=== PATIENT | male | born 1955 | race African-American/Black ===

== ENCOUNTER 2016-10-26 08:57 | Inpatient (IN) | payer OTHER ==
[~2016-10-26] VITALS: Ht 172.7 cm; Wt 73.0 kg
[~2016-10-26 08:57] MED LIST: AMLO-218 PO; CARI350T PO; ESOM20CA PO; HYDR-762 PO; LEVO750T8 PO
[2016-10-26] MEDS ORDERED: SOD CHLORIDE 0.9% 500 ML IV STA (09:13)
[2016-10-26 09:19] VITALS: TEMP 98.8
--- NOTE | 2016-10-26 09:46 | RADRPT ---
PROCEDURE: XR Chest. CLINICAL INDICATION: chest pain TECHNIQUE: Single frontal view of the chest was obtained COMPARISON: None FINDINGS: There is a left perihilar lung mass with left upper lobe atelectasis and elevation of the left diaph ragm. The heart is normal in size. There is a right chest wall port in place. There is no pleural effusion or pneumothorax. RPTAT: AA IMPRESSION: New left perihilar lung mass with left upper lobe atelectasis and elevation of the left diaphragm, c onsistent with the patient's history of lung cancer. A call report was made and the findings discussed with Brian Moore at 10/26/2016 9:44:56 AM. .Emil Heller MD, Date Time Electronically viewed and signed by .Emil Heller MD, on 10/26/2016 09:46 .S/
[2016-10-26 10:20] LABS: ADD SCAN DIFF NO
[2016-10-26 10:34] LABS: BASOPHILS % 0.4 % (0.0-2.0); EOSINOPHILS % 0.7 % (0.0-7.0); HEMATOCRIT 37.7 % (42.0-52.0); HEMOGLOBIN 12.5 g/dl (14.0-18.0); LYMPHOCYTES # 1.6 10^3/ul (0.8-2.9); LYMPHOCYTES % 27.5 % (15.0-51.0); MEAN CORPUSCULAR HEMOGLOBIN 29.6 pg (29.0-33.0); MEAN CORPUSCULAR HGB CONC 33.2 g/dl (32.0-37.0); MEAN CORPUSCULAR VOLUME 89.1 fl (82.0-101.0); MEAN PLATELET VOLUME 8.7 fl (7.4-10.4); MONOCYTE # 0.6 10^3/ul (0.3-0.9); MONOCYTES % 10.7 % (0.0-11.0); NEUTROPHIL # 3.5 10^3/ul (1.6-7.5); NEUTROPHILS % 60.5 % (39.0-77.0); PLATELET COUNT 229 10^3/UL (140-415); RED BLOOD COUNT 4.23 10^6/ul (4.70-6.10); RED CELL DISTRIBUTION WIDTH 14.5 % (11.5-14.5); WHITE BLOOD COUNT 5.7 10^3/ul (4.8-10.8)
[2016-10-26 10:35] LABS: CHLORIDE 102 mmol/L (97-110)
[2016-10-26 10:36] LABS: SODIUM 143 mmol/L (135-144)
[2016-10-26 10:38] LABS: ALBUMIN/GLOBULIN RATIO 1.21; ALKALINE PHOSPHATASE 88 IU/L (42-121); ANION GAP 16 (8-16); ASPARTATE AMINO TRANSFERASE 28 IU/L (15-46); BILIRUBIN,INDIRECT 0.2 mg/dl (0-1.1); BILIRUBIN,TOTAL 0.2 mg/dl (0.2-1.3); BLOOD UREA NITROGEN 11 mg/dl (7-20); CARBON DIOXIDE 29 mmol/L (21-31); CREATININE 0.84 mg/dl (0.61-1.24); GLUCOSE 83 mg/dl (70-220); TOTAL PROTEIN 7.3 g/dl (6.1-8.1)
[2016-10-26 10:39] LABS: ALANINE AMINOTRANSFERASE 23 IU/L (13-69); CALCIUM 9.7 mg/dl (8.4-10.2)
[2016-10-26 11:03] LABS: TROPONIN-I < 0.012 ng/ml (0.00-0.12)
--- NOTE | 2016-10-26 12:00 | ERA ---
ER Documentation Chief Complaint Date/Time DATE: 10/26/16 TIME: 912 Chief Complaint chest pain for 3 wks nausea and vomiting with mild sob. HPI 61-year-old male presents to the emergency department complaining of chest pain nausea vomiting and weakness. Patient states he has a history of lung cancer for which she is having ongoing therapy. Recently, he has been nauseous and vomiting to the point where he feels like he cannot keep any food down. He feels dehydrated weak and with discomfort essentially all over his body but mostly in the chest and the abdomen. His pain does not localize comments nonspecific in nature and currently rated as 7/10. Patient reports no fevers no chills but has continued to have weight loss. ROS All systems reviewed and are negative except as per history of present illness. Medications Home Meds Reported Medications Esomeprazole Mag Trihydrate (Nexium) 20 Mg Capsule.dr, 20 MG PO DAILY, #30 CAP 10/29/15 Amlodipine Besylate* (Norvasc*) 10 Mg Tablet, 10 MG PO DAILY, TAB 10/29/15 Discontinued Reported Medications Hydrocodone Bit-Acetaminophen* (Warren*) 10-325 Mg Tablet, 1 TAB PO Q6 Y for PAIN , TAB 10/29/15 Levofloxacin* (Levofloxacin*) 750 Mg Tablet, 750 MG PO DAILY, TAB 10/29/15 Discontinued Scripts Carisoprodol* (Soma*) 350 Mg Tablet, 350 MG PO TID Y for MUSCLE SPASMS, #15 TAB Prov:NATO PIERCE MD 10/29/15 Allergies Allergies: Coded Allergies: aspirin (Verified Allergy, Unknown, 10/26/16) penicillin (Verified Allergy, Unknown, 10/26/16) PMhx/Soc History of Surgery: Yes Hx Alcohol Use: No Hx Substance Use: No Hx Tobacco Use: No FmHx Noncontributory for chief complaint Physical Exam Vitals Vital Signs Date Time Temp Pulse Resp B/P Pulse Ox O2 Delivery O2 Flow Rate FiO2 10/26/16 11:18 71 13 125/76 100 Room Air 10/26/16 09:19 98.8 84 8 141/87 96 Room Air 10/26/16 09:01 98.1 100 20 155/77 98 Physical Exam GENERAL: Patient is chronically ill-appearing and slightly dehydrated. HEENT: Pupils equal, round, and reactive to light. EOMI. There is no scleral icterus. NECK: C-spine is soft and supple, there is no meningismus. There is no cervical lymphadenopathy. LUNGS: Clear to auscultation bilaterally. There are no rales, wheezes or rhonchi. HEART: Regular rate and rhythm, no murmurs, clicks, rubs or gallops. ABDOMEN: Soft, non-tender, non-distended. There are bowel sounds in all four quadrants. No rebound or guarding. EXTREMITIES: There is no peripheral cyanosis or edema. No focal swelling or erythema. NEURO: The patient moves all four extremities with 5/5 strength. Cranial nerves II - XII are intact. Normal gait. Alert and oriented SKIN: There is no apparent rash or petechiae. Patient has a Port-A-Cath access in the right upper chest wall HEME/LYMPHATIC: There is no evidence of excessive bruising or lymphedema. PSYCHIATRIC: The patient does not appear anxious or depressed. Result Diagram: 10/26/16 1000 10/26/16 1000 Results 24 hrs Laboratory Tests Test 10/26/16 10:00 Alanine Aminotransferase (ALT/SGPT) 23IU/L Albumin 4.0g/dl Albumin/Globulin Ratio 1.21 Alkaline Phosphatase 88IU/L Anion Gap 16 Aspartate Amino Transf (AST/SGOT) 28IU/L Basophils # 0.010^3/ul Basophils % 0.4% Blood Urea Nitrogen 11mg/dl Calcium Level 9.7mg/dl Carbon Dioxide Level 29mmol/L Chloride Level 102mmol/L Creatinine 0.84mg/dl Direct Bilirubin 0.00mg/dl Eosinophils # 0.010^3/ul Eosinophils % 0.7% Globulin 3.30g/dl Glucose Level 83mg/dl Hematocrit 37.7% Hemoglobin 12.5g/dl Indirect Bilirubin 0.2mg/dl Lymphocytes # 1.610^3/ul Lymphocytes % 27.5% Mean Corpuscular Hemoglobin 29.6pg Mean Corpuscular Hemoglobin Concent 33.2g/dl Mean Corpuscular Volume 89.1fl Mean Platelet Volume 8.7fl Monocytes # 0.610^3/ul Monocytes % 10.7% Neutrophils # 3.510^3/ul Neutrophils % 60.5% Nucleated Red Blood Cells # 0.010^3/ul Nucleated Red Blood Cells % 0.0/100WBC Platelet Count 52589^3/UL Potassium Level 4.0mmol/L Red Blood Count 4.2310^6/ul Red Cell Distribution Width 14.5% Sodium Level 143mmol/L Total Bilirubin 0.2mg/dl Total Protein 7.3g/dl Troponin I < 0.012ng/ml White Blood Count 5.710^3/ul Current Medications Medications (Trade) Dose Ordered Sig/Alan Route PRN Reason Start Time Stop Time Status Last Admin Dose Admin Sodium Chloride (NS) 500 ml @ 500 mls/hr Q1H STAT IV 10/26/16 09:13 10/26/16 10:12 DC 10/26/16 10:57 Procedures/MDM Patient was taken to a room, seen and evaluated. Comfort measures were initiated. Diagnostic tests were ordered and reviewed. 3 LEAD RHYTHM STRIP: Normal sinus rhythm without ectopy EK lead EKG reviewed by myself: Normal Sinus Rhythm Normal [place] and intervals No ST elevation, depression, or T wave inversion Impression: Normal EKG RADIOLOGY: reviewed with the radiologist CONSULTATION: Dr. Bryant was notified for admission after I spoke with who recommended admission for initiation of palliative care, IV hydration and further observation REEVALUATION: Patient remained hemodynamically stable in the emergency room MEDICAL DECISION MAKING: This is an unfortunate 61-year-old male with a history of progressing lung cancer who is apparently failing outpatient therapy at this time with his chemotherapy and other treatment options. Patient is having ongoing symptoms that he feels he is unable to take care of himself at home and is been unable to keep any fluid down. Clinically he is dehydrated, but his electrolytes appear to be adequate. Patient has been started on IV hydration and as per my conversations with his oncologist, he will be admitted for further observation and care. KARTHIK SANDERS Oct 26, 2016 12:00
[2016-10-26] MEDS ORDERED: HYDROmorphONE 1 MG/ML SYG IV STA (12:29)
[2016-10-26 13:30] VITALS: BP 132/86; PULSE 73; RESP 16
[2016-10-26 13:39] VITALS: Ht 172.7 cm; Wt 73.0 kg
[2016-10-26] MEDS ORDERED: ACETAMINOPHEN 325 MG TAB PO PRN (14:30)
[2016-10-26] MEDS ORDERED: hydrALAzine 20 MG INJ IV PRN (14:30)
[2016-10-26] MEDS ORDERED: OXYCODONE/ACETAMINOPHEN (10/325) TAB PO PRN (14:30)
[2016-10-26] MEDS ORDERED: morphine 2 MG INJ IV PRN (14:30)
[2016-10-26] MEDS ORDERED: ONDANSETRON 4 MG INJ IV PRN (14:30)
--- NOTE | 2016-10-26 14:58 | CONS ---
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 I am concerned for progressive disease in abdomen as well as brain metastasis given the dizziness. -continue IV Fluids -appreciate pain management consultation to assist with pain management -check CT C/A/P with po and IV contrast -Brain MRI ordered to r/o brain mets -further recommendations will be based on the above tests Problems: Consultation Date/Type/Reason Admit Date/Time Oct 26, 2016 at 12:01 Date of Consultation: Oct 26, 2016 Type of Consultation: Oncology Reason for Consultation metastatic lung ca Referring Provider: KARTHIK SANDERS of Present Illness 61 yo male with 40 pack year smoking history, who is being treated for metastatic adenoca of lung. Patient has progressed through carboplatin and Alimpta and is now receiving opdivo immuno therapy. Patient received his 7th dose 3 weeks ago in our office. He now presents with dizziness x 3 weeks as well as abdominal pain. He is taking subsys Fentanyl spray as well as [place] and MS Contin as an out patient. Denies nausea or blood in stool. His energy level has decreased greatly. Constitutional: diaphoresis, poor po Eyes: no complaints ENT: no complaints Respiratory: cough, shortness of breath Cardiovascular: no complaints Gastrointestinal: pain Genitourinary: no complaints Musculoskeletal: bone/joint pain Neurologic: dizziness Endocrine: no complaints Past Medical History COPD Past Surgical History Past Surgical Hx: no surgical history Family History Significant Family History: no pertinent family hx Social History Alcohol Use: none Smoking Status: Current some day smoker Drug Use: marijuana Exam/Review of Systems Vital Signs Vitals Vital Signs Date Time Temp Pulse Resp B/P Pulse Ox O2 Delivery O2 Flow Rate FiO2 10/26/16 12:40 71 13 130/82 98 Room Air 10/26/16 09:19 98.8 Exam Constitutional: alert, oriented Psych: no complaints Eyes: nl conjunctiva ENMT: nl external ears & nose, nl lips & teeth Neck: supple Respiratory: crackles/rales, diminished breath sounds Cardiovascular: regular rate and rhythm Gastrointestinal: nl liver, spleen, soft, tender Musculoskeletal: nl extremities to inspection, nl gait and stance Extremities: normal pulses Results Result Diagram: 10/26/16 1000 10/26/16 1000 Results 24 hrs Laboratory Tests Test 10/26/16 10:00 Alanine Aminotransferase (ALT/SGPT) 23 Albumin 4.0 Albumin/Globulin Ratio 1.21 Alkaline Phosphatase 88 Anion Gap 16 Aspartate Amino Transf (AST/SGOT) 28 Basophils # 0.0 Basophils % 0.4 Blood Urea Nitrogen 11 Calcium Level 9.7 Carbon Dioxide Level 29 Chloride Level 102 Creatinine 0.84 Direct Bilirubin 0.00 Eosinophils # 0.0 Eosinophils % 0.7 Globulin 3.30 H Glucose Level 83 Hematocrit 37.7 #L Hemoglobin 12.5 #L Indirect Bilirubin 0.2 Lymphocytes # 1.6 Lymphocytes % 27.5 Mean Corpuscular Hemoglobin 29.6 Mean Corpuscular Hemoglobin Concent 33.2 Mean Corpuscular Volume 89.1 Mean Platelet Volume 8.7 Monocytes # 0.6 Monocytes % 10.7 Neutrophils # 3.5 Neutrophils % 60.5 Nucleated Red Blood Cells # 0.0 Nucleated Red Blood Cells % 0.0 Platelet Count 229 Potassium Level 4.0 Red Blood Count 4.23 #L Red Cell Distribution Width 14.5 Sodium Level 143 Total Bilirubin 0.2 Total Protein 7.3 Troponin I < 0.012 White Blood Count 5.7 # Medications Medications Current Medications Dextrose/Sodium Chloride (D5-NS) 1,000 ml @ 60 mls/hr [id number] IV ; Start at 14:30 Pantoprazole (Protonix Iv) 40 mg DAILY@06 IV ; Start 10/27/16 at 06:00 Morphine Sulfate (morphine) 2 mg Q2H PRN IV PAIN; Start 10/26/16 at 14:30 Ondansetron HCl (Zofran Inj) 4 mg Q4H PRN IV NAUSEA AND/OR VOMITING; Start 10/26 at 14:30 Amlodipine Besylate (Norvasc) 10 mg DAILY PO ; Start 10/26/16 at 14:30 Hydralazine HCl (Apresoline) 10 mg Q6H PRN IV ELEVATED SYSTOLIC BP; Start at 14:30 Oxycodone/ Acetaminophen (Endocet (10/ 325)) 1 tab Q4H PRN PO PAIN; Start at 14:30 Acetaminophen (Tylenol Tab) 650 mg Q6H PRN PO PAIN AND OR ELEVATED TEMP; Start 10/26/16 at 14:30 BONI SMALL M.D. Oct 26, 2016 14:58
[2016-10-26] MEDS ORDERED: BARIUM SULF 2% 450 ML BTL (BERRY SMOOTHIE) PO ONE (15:00)
[2016-10-26] MEDS: AMLODIPINE 10 MG TAB PO SCH (15:54)
[2016-10-26] MEDS: DEXTROSE 5%-0.9% NACL 1,000 ML IV SCH (15:55)
[2016-10-26] MEDS ORDERED: POLYETHYLENE GLYCOL 17 GM PACKET NGT PRN (17:30)
[2016-10-26] MEDS ORDERED: SOD CHLORIDE 0.9% 100 ML ONE ×2 (18:47)
[2016-10-26] MEDS ORDERED: IOHEXOL 300MG/ML 150 ML BTL ONE ×2 (18:47)
--- NOTE | 2016-10-26 20:24 | RADRPT ---
PROCEDURE: CT Chest, Abdomen, and Pelvis CLINICAL INDICATION: Evaluate for progressive disease TECHNIQUE: Transaxial images were obtained through the chest, abdomen, and pelvis on a multi-slice scanner following the intravenous administration of iodinated contrast. No oral contrast had previ ously been given. Sagittal and coronal re-formations were subsequently reconstructed. One or more of the following dose reduction techniques were used: - Automated exposure control. - Adjustment of the mA and/or kV according to patient size. - Use of iterative reconstruction technique. Radiation Dose: CTDI = 7.60 mGy; DLP = 600.01 mGy-cm. COMPARISON: To the previous chest done earlier on the same date. The previous chest demonstrate a left hilar mass with a left upper lobe atelectasis. A right-sided Port-A-Cath is evident. FINDINGS: CHEST: Lung verma: There is a left upper lobe atelectasis and consolidation. The remaining lung verma ar e mildly hyperexpanded. No nodule is identified. Pleural spaces: No pneumothorax or pleural fluid accumulation is evident. Lymph nodes: There is a 7.0 x 5.4 x 4.7 cm lobulated heterogeneous mass extending from the right hil um superiorly anterior to the left main pulmonary artery with peripheral atelectasis involving the l eft upper lobe. The mass envelops the left upper lobe bronchus which rapidly tapers and becomes obst ructed. The mass partially envelops the right lower lobe bronchus. No other enlarged nodes are evid ent. Cardiovascular structures: A right-sided Port-A-Cath is evident with a catheter entering the right j ugular vein and the tip located within the superior right atrium. The heart is not enlarged. There is a small pericardial effusion seen posterior to the sternum between the ascending aorta and main pulmonary artery segment. There is mild atherosclerotic vascular calcification. Aorta is intact an d normal in caliber and the brachial cephalic vessels are patent. The central pulmonary arteries ap pear patent. Thyroid: Unremarkable Esophagus: The esophageal wall is thickened concentrically and the lumen is mildly dilated and fill ed with contrast. Osseous structures: The osseous elements appear intact. ABDOMEN: Liver: Normal in size and in attenuation. There is no focal lesion. The hepatic veins and portal vei ns appear patent. Gallbladder: The wall is not thickened. No radiopaque stones are identified. Bile ducts: The intra and extrahepatic bile ducts are normal in caliber. Pancreas: Appears normal with no mass or inflammation evident. Spleen: Normal in size with no focal lesion. Adrenals: Normal with no mass identified. Kidneys, ureters and bladder: A 1.4 cm in maximal diameter cyst is seen at the posterior lateral sup erior pole left kidney. Kidneys are otherwise unremarkable without hydronephrosis. The ureters are unremarkable. The bladder is poorly distended giving the wall of thickened appearance. Reproductive organs: The prostate is mildly prominent. Stomach, bowel, and Mesentery: The stomach is distended with food debris. There is thickening of th e wall of the duodenum and proximal jejunum. The ileum appears unremarkable. Substantial stool is s een within the right colon. Appendix: The vermiform appendix is prominent in caliber measuring 9 mm but no inflammatory changes are evident about the appendix. Peritoneum: No free intraperitoneal fluid or air is identified. Aorta: Normal in caliber with no aneurysmal dilatation. IVC: Unremarkable. Lymph nodes: There is a 1.8 cm in diameter necrotic appearing retrocrural lymph node seen to the rig ht of the proximal abdominal aorta. More inferiorly a 1.2 cm in diameter retroperitoneal node is se en to the right of the aorta at the level of the superior mesenteric artery. Even more inferiorly s everal aorto caval nodes are evident up to 1.1 cm in short diameter. Osseous structures: A 6 mm focus of sclerosis is seen within the right posterior acetabulum that lik anita represents a bone island. IMPRESSION: 1. A 7.0 x 5.4 x 4.7 cm lobulated heterogeneous mass is seen extend to the right hilum superiorly ly ing anterior to the left main pulmonary artery. The mass envelops obstructs the left upper lobe bro nchus and partially envelops the lower lobe bronchus. There is peripheral atelectasis and consolida tion of the left upper lobe. 2. There is a small anterior pericardial effusion located posterior to the sternum and anterior to the junction of the ascending aorta and main pulmonary artery. 3. The esophagus is dilated and the wall is circumferentially thickened throughout. 4. A right-sided Port-A-Cath is evident with the tip in the superior right atrium. 5. There is right retrocrural and retroperitoneal adenopathy with nodes up to 1.[address]. 6. There is bowel wall thickening involving the duodenum and proximal jejunum with the stomach dist ended and filled with food debris. Substantial stool is seen within the right colon. 7. A 1.4 cm in maximal diameter cyst is seen at the superior pole left kidney but there is no evide nce of urinary outflow obstruction or ureterolithiasis. The bladder is suboptimally distended givin g the wall thickened appearance. 8. There is no free intraperitoneal fluid. 9. An AC 5 mm area of sclerosis is seen within the posterior right acetabulum which likely represen ts a bone island. The osseous elements otherwise appear intact. Physician Manuelito Date Time Electronically viewed and signed by Physician Manuelito on 10/26/2016 20:24 RH/
--- NOTE | 2016-10-26 20:31 | QN ---
Documentation Comment [id number] KYLE MEYERS MD Oct 26, 2016 20:31
[2016-10-26 20:35] VITALS: BP 113/63; RESP 18
[2016-10-26] MEDS: morphine (ER) 30 MG TAB PO SCH (20:37)
[2016-10-26] MEDS: METHYLNALTREXONE 12 MG/0.6 ML VIAL SC SCH (21:11)
[2016-10-26] MEDS: HYDROmorphONE 1 MG/ML SYG IV PRN (21:13)
--- NOTE | 2016-10-27 01:17 | HP ---
DATE OF ADMISSION: 10/26/2016 HISTORY OF PRESENT ILLNESS: The patient is a 61-year-old male who has a history of stage IV adenoca rcinoma of the lungs involving his bilateral lungs, has history of chemotherapy in the past. Deann alcantar the patient is on immunotherapy. The patient was sent in by Dr. Tejeda for weakness, tiredness, poor p.o. intake and dizziness and also abdominal pain. The patient is admitted for further managem ent and further workup as well as IV fluid. PAST MEDICAL HISTORY: Positive for hand surgery, history of lung CA. ALLERGY HISTORY: 1. ASPIRIN. 2. PENICILLIN. SOCIAL HISTORY: A smoker. MEDICATION HISTORY: At home, patient is on: 1. Amlodipine. 2. Esomeprazole. REVIEW OF SYSTEMS: HEENT: Dizziness. RESPIRATORY: No shortness of breath. No hemoptysis ____ blood pressure. ABDOMEN: Dyspepsia, on-and-off abdominal pain since he started immunotherapy. EXTREMITIES: No swelling. CENTRAL NERVOUS SYSTEM: Unremarkable. PHYSICAL EXAMINATION: GENERAL: The patient is a thin-looking male, awake, alert. VITAL SIGNS: Stable. HEAD: Atraumatic, normocephalic. EYES: Pupils equal, reactive to light. NECK: Supple. No JVD. LUNGS: Clear. CARDIOVASCULAR: S1 and S2 are normal. ABDOMEN: Soft, nontender. Bowel sounds plus. No palpable mass or hepatosplenomegaly. No guarding , rebound tenderness. EXTREMITIES: The patient has no cyanosis but clubbing, mild, noted. No edema. CENTRAL NERVOUS SYSTEM: The patient is awake, alert, moving both upper and lower extremities. LABORATORY DATA: Hematocrit 37.7, potassium 4. IMAGING: Chest x-ray: New left perihilar lung mass with left upper lobe atelectasis, elevation of the left hemidiaphragm. The patient also had a chest CT, shows patient has 7 x 5.4 x 4.7 cm lobulated heterogeneous mass see n extending to the right hilum. Small anterior pericardial effusions. Esophagus is dilated. The w all is circumferentially thickened. Right retrocrural and retroperitoneal adenopathy. IMPRESSION: 1. Lung carcinoma. 2. Generalized weakness. 3. Clinical dehydration. 4. History of hypertension. 5. Renal cyst. PLAN: Give this patient gentle IV fluid, PPI, pain medication. The patient will have recommendatio n from Dr. Tejeda, and palliative care consultation will be obtained. Orders were done. Dictated By: KYLE MEYERS MD BS/NTS Conf#: [id number] DID#: [id number]
[2016-10-27] MEDS: PANTOPRAZOLE 40 MG INJ IV SCH (06:35)
[2016-10-27] MEDS: DEXTROSE 5%-0.9% NACL 1,000 ML IV SCH ×2 (06:38→23:42)
[2016-10-27 08:11] VITALS: BP 135/68; RESP 18
[2016-10-27] MEDS: AMLODIPINE 10 MG TAB PO SCH (09:04)
[2016-10-27] MEDS: morphine (ER) 30 MG TAB PO SCH ×2 (09:05→20:23)
--- NOTE | 2016-10-27 10:11 | RADRPT ---
PROCEDURE: Orbit x-ray CLINICAL INDICATION: Pre MRI. History of known grinding. TECHNIQUE: AP and lateral views of the orbits. COMPARISON: None. FINDINGS: No radiopaque body overlying the orbits. The paranasal sinuses and nasal cavity are clear. The dagoberto al septum deviates mildly to the left. The mastoid air cells are well-aerated. IMPRESSION: No radiopaque foreign body. RPTAT:AAJJ Physician Mirella Date Time Electronically viewed and signed by Physician Mirella on 10/27/2016 10:11 PATRICIA/
[2016-10-27] MEDS: HYDROmorphONE 1 MG/ML SYG IV PRN ×2 (11:19→22:34)
--- NOTE | 2016-10-27 12:30 | CONS ---
Date/Time of Note Date/Time of Note DATE: 10/27/16 TIME: 12:13 Assessment/Plan Assessment/Plan Chief Complaint/Hosp Course 61 yo male with 40 pack year smoking history, who is being treated for metastatic adenoca of lung. Patient has progressed through carboplatin and Alimpta and is now receiving opdivo immuno therapy. Patient received his 7th dose 3 weeks ago in our office. He now presents with dizziness x 3 weeks as well as abdominal pain. CT C/A/P was done in house which reveals the known lung mass and retroperitoneal nodes. When compared to the last scan in 06/2016, the lung mass is stable in size but the retroperitoneal lymph nodes have slightly increased in size. -need to f/u [facility] MRI as patient has dizziness -given the increase in abdominal LN and his pain in the abdomen, will need to consider changing our regimen. will discuss with the patient. -appreciate pain management recommendations. Pt is on MS contin and Dilaudid approximately 40 min were spent at patient's bedside and in coordination of his care Problems: Consultation Date/Type/Reason Admit Date/Time Oct 26, 2016 at 12:01 Initial Consult Date 10/26/16 Type of Consultation: Oncology Reason for Consultation metastatic adenocarcinoma of lung Referring Provider: KARTHIK SANDERS 24 HR Interval Summary Free Text/Dictation ambulating. states he feels better since receiving the fluids. Has not had MRI brain yet. Exam/Review of Systems Vital Signs Vitals Vital Signs Date Time Temp Pulse Resp B/P Pulse Ox O2 Delivery O2 Flow Rate FiO2 10/27/16 08:11 98.7 68 18 135/68 94 10/26/16 13:30 Room Air Intake and Output 10/26/16 10/26/16 10/27/16 15:00 23:00 07:00 Intake Total 1260 ml 620 ml Output Total 175 ml 220 ml 420 ml Balance -175 ml 1040 ml 200 ml Exam Constitutional: alert, oriented Psych: depression Head: normocephalic Eyes: nl conjunctiva ENMT: other (top gum adentulous) Neck: non-tender, supple Respiratory: clear to auscultation, normal air movement Cardiovascular: regular rate and rhythm Gastrointestinal: soft Musculoskeletal: nl extremities to inspection, nl gait and stance Extremities: normal pulses Results Result Diagram: 10/26/16 1000 10/26/16 1000 Medications Medications Current Medications Dextrose/Sodium Chloride (D5-NS) 1,000 ml @ 60 mls/hr [id number] IV Last administered on 10/27/16 06:38; Admin Dose 60 MLS/HR; Start 10/26/16 at 14:30 Pantoprazole (Protonix Iv) 40 mg DAILY@06 IV Last administered on 10/27/16 06: 35; Admin Dose 40 MG; Start 10/27/16 at 06:00 Ondansetron HCl (Zofran Inj) 4 mg Q4H PRN IV NAUSEA AND/OR VOMITING; Start 10/26 at 14:30 Amlodipine Besylate (Norvasc) 10 mg DAILY PO Last administered on 10/27/16 09: 04; Admin Dose 10 MG; Start 10/26/16 at 14:30 Hydralazine HCl (Apresoline) 10 mg Q6H PRN IV ELEVATED SYSTOLIC BP; Start at 14:30 Acetaminophen (Tylenol Tab) 650 mg Q6H PRN PO PAIN AND OR ELEVATED TEMP; Start 10/26/16 at 14:30 Morphine Sulfate (Ms Contin (Er)) 60 mg BID PO Last administered on 10/27/16 09 :05; Admin Dose 60 MG; Start 10/26/16 at 21:00 Hydromorphone HCl (Dilaudid) 1 mg Q3 PRN IV PAIN Last administered on 10/27/16 11:19; Admin Dose 1 MG; Start 10/26/16 at 17:30 Methylnaltrexone [place] (Relistor) 12 mg Q2D@09 SC Last administered on 21:11; Admin Dose 12 MG; Start 10/26/16 at 20:00 Polyethylene Glycol (Miralax) 17 gm DAILY PRN NGT CONSTIPATION; Start 10/26/16 at 17:30 BONI SMALL M.D. Oct 27, 2016 12:29
--- NOTE | 2016-10-27 13:28 | CONS ---
DATE OF ADMISSION: 10/26/2016 DATE OF CONSULTATION: 10/27/2016 PAIN MANAGEMENT CONSULTATION HISTORY OF PRESENT ILLNESS: This is a very pleasant 61-year-old gentleman who is a patient of Dr. Vishnu Tejeda who has presented to [facility], admitted with abdominal discomfort an d dizziness. States that his pain is generalized and was began approximately 2 months prior to this hospitalization without nausea, vomiting, generalized, primarily located in bilateral upper quadran ts without radiation. Some gnawing type of discomfort that he grades 9/10. Secondary complaint at this time is dizziness without scotoma photophobic formication without true vertigo. 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 As an outpatient he had a recent CT scan which showed progression of underlying lung cancer. Please refer to the formal report by Dr. Dale Reyna, 10/26/2016, which show s once again progression of disease. This has been reviewed also by Dr. Tejeda. As an outpatient he was receiving a combination of fentanyl and Diamond and MS Contin, although he states that he feels t hat the Diamond may cause him some low-grade nausea on occasion. He states that the fentanyl works, b ut he has used that in combination with his other opioid pain control medications. Essentially his pain has increased as noted above. MEDICATIONS: Please refer to reconciliation sheets. ALLERGIES: 1. ASPIRIN. 2. PENICILLIN. MAJOR MEDICAL PROBLEMS IN THE PAST: Entirely per history of present illness. SOCIAL HISTORY: Still a smoker. No substance abuse. Lives in [place]. FAMILY HISTORY: Noncontributory towards this hospitalization. REVIEW OF SYSTEMS: A 12-point review of systems noncontributory and as per history of present illne ss. PHYSICAL EXAMINATION: GENERAL: Shows a well-nourished, well-developed gentleman in no acute distress. VITAL SIGNS: Blood pressure 135/68, pulse of 68 and regular, respirations 18, temperature 98.7 degr ees, 94% saturation on room air. HEENT: He is normocephalic and atraumatic. Anicteric, acyanotic. CHEST: Shows bilateral distant breath sounds throughout both lung verma. He has no rales, rhonchi , wheezing, or rubs. COR: S1, S2, without S3, S4, murmur, gallop, rub. Normal rate, normal rhythm. ABDOMEN: Grossly benign. LABORATORY TESTS: White blood cell count of 5.7, hemoglobin of 12.5, hematocrit of 37.7, MCV of 89. 1, platelet count of 229,000. Chemistry: Serum sodium 143, potassium 4.0, chloride 102, bicarbonat e 29, BUN of 11, creatinine 0.84. Total bilirubin 0.2, AST 28, ALT 23, alkaline phosphatase 88. ASSESSMENT AND PLAN: This gentleman has abdominal discomfort which may be related to underlying mal ignancy and new onset dizziness without true vertigo. I will discontinue Diamond as it may be contrib uting to some low-grade nausea and switch him over to Dilaudid at this time, Dilaudid 1 mg IV q.3 ho urs. Will restart his MS Contin 60 mg b.i.d. and start him off on Relistor also. In addition, will add on MiraLax. We will follow him closely while inhouse. I appreciate this consultation very muc h. Dictated By: EDIE HALL MD, LP/BULMARO Conf#: [id number] DID#: [id number]
--- NOTE | 2016-10-27 14:24 | PN ---
DATE: 10/27/2016 PAIN MANAGEMENT FOLLOWUP NOTE SUBJECTIVE: Mr. Schwarz states that his pain is controlled today. He does not have nausea, vomiting. He still has chest discomfort he states, which is throbbing continuous type of discomfort. He has no hemoptysis. OBJECTIVE: VITAL SIGNS: Blood pressure 135/68, pulse 68 and regular, respirations of 18, temperature 98.7 degr ees, 94% saturations on room air. HEENT: He is normocephalic and atraumatic. Anicteric, acyanotic. CHEST: Shows bilateral distant breath sounds and inspiratory and expiratory dry crackles throughout both lung verma. COR: S1, S2, without S3, S4, murmur, gallop, rub. Normal rate, normal rhythm. ABDOMEN: Grossly benign. ASSESSMENT AND PLAN: There are no new laboratories today. The patient is waiting for results of MR John. History of lung cancer with progression of his disease, rule out brain metastasis. A long discuss ion with him concerning discontinuing smoking and lifestyle changes. Dictated By: EDIE HALL MD, LP/BULMARO Conf#: [id number] DID#: [id number]
--- NOTE | 2016-10-27 16:07 | RADRPT ---
PROCEDURE: MRI Brain without and with contrast. CLINICAL INDICATION: Lung cancer, metastatic evaluation TECHNIQUE: Multiplanar MRI of the brain without and with contrast was performed on a 3.0 T scanner with the following sequences obtained: T1-weighted, T2-weighted/FLAIR, diffusion weighted (with ADC map), GRE, postcontrast T1-weighted. 10 cc Magnevist intravenous contrast administered. COMPARISON: None available FINDINGS: Multifocal enhancing parenchymal lesions are present in the bilateral cerebral and cerebellar hemisp heres, compatible with metastatic disease. The larger lesions are present in the cerebellum, with t he largest in the left cerebellar hemisphere measuring up to 2.9 cm. The next largest lesion is in the cerebellar vermis measuring up to 2.1 cm which partially effaces the fourth ventricle, and there is a 1.4 cm lesion in the right cerebellar hemisphere. There is mild-moderate vasogenic edema asso ciated with the cerebellar lesions bilaterally, greatest around the lesion in the left cerebellar he misphere. The prepontine cistern is also somewhat effaced. The cerebral lesions measure 1 cm or le ss in size with the largest at the right temporal lobe anteriorly with relative mild surrounding melonie ma, and the other all at the right foramen of Monro, both measuring up to 1 cm. Additional tiny les ions are identified at the bilateral temporal, left occipital, left parietal and bilateral frontal lobes. No midline shift is identified. The right temporal horn is mildly prominent. Early hydrocep halus is not excluded. There is a 5 mm signal void at the terminal left ICA region which raises the possibility of aneurysm . No acute/recent ischemic infarction or intracranial hemorrhage - blood degradation products are iden tified. Minimal areas of increased T2 / FLAIR signal intensity are present in the periventricular and deep w antonio matter, nonspecific but likely related to chronic small vessel ischemic changes. The sella is partly empty. Flow voids are identified in the proximal intracranial arteries and dural sinuses suggesting patency . The mastoid air cells and paranasal sinuses are grossly clear. IMPRESSION: 1. Multifocal cerebral and cerebellar parenchymal enhancing lesions compatible with metastatic dise ase detailed above, with the largest metastases involving the cerebellum with associated mild to mod erate vasogenic edema. There is a small right temporal metastasis with mild edema, as well as a smal l metastasis at the right foramen of Monro. 2. Mildly prominent right temporal horn. Early hydrocephalus is not excluded. 3. No midline shift. 4. 5 mm signal void at the terminal left ICA region suspicious for aneurysm. Further evaluation wi th MRA, or CTA of the brain is advised. 5. Minimal chronic small vessel ischemic changes. 6. Partly empty sella. RPTAT: TT .Shon Scanlon MD, Date Time Electronically viewed and signed by .Shon Scanlon MD, on 10/27/2016 16:07 .O/
[2016-10-27 20:07] VITALS: BP 106/63; RESP 18
--- NOTE | 2016-10-27 20:36 | PN ---
Date/Time of Note Date/Time of Note DATE: 10/27/16 TIME: 20:35 Assessment/Plan VTE Prophylaxis VTE Prophylaxis Intervention: other Lines/Catheters IV Catheter Type (from Nrs): Port-a-Cath Urinary Cath still in place: No Assessment/Plan Chief Complaint/Hosp Course IMPRESSION: 1. Lung carcinoma. 2. Generalized weakness. 3. Clinical dehydration. 4. History of hypertension. 5. Renal cyst. 6 abd pain mild plan per dr muñoz Problems: Subjective 24 Hr Interval Summary Subjective hx not possible: other (not feeling good) Exam/Review of Systems Vital Signs Vitals Vital Signs Date Time Temp Pulse Resp B/P Pulse Ox O2 Delivery O2 Flow Rate FiO2 10/27/16 20:07 98.3 75 18 106/63 93 10/26/16 13:30 Room Air Intake and Output 10/26/16 10/26/16 10/27/16 15:00 23:00 07:00 Intake Total 1260 ml 620 ml Output Total 175 ml 220 ml 420 ml Balance -175 ml 1040 ml 200 ml Exam Respiratory: clear to auscultation Cardiovascular: regular rate and rhythm Gastrointestinal: bowel sounds (+), non-tender, soft Musculoskeletal: nl extremities to inspection Extremities: normal pulses Results Result Diagram: 10/26/16 1000 10/26/16 1000 Results 24 hrs Laboratory Tests Test 10/27/16 14:30 Carcinoembryonic Antigen 1830.0 H Medications Medications Current Medications Dextrose/Sodium Chloride (D5-NS) 1,000 ml @ 60 mls/hr [id number] IV Last administered on 10/27/16 06:38; Admin Dose 60 MLS/HR; Start 10/26/16 at 14:30 Pantoprazole (Protonix Iv) 40 mg DAILY@06 IV Last administered on 10/27/16 06: 35; Admin Dose 40 MG; Start 10/27/16 at 06:00 Ondansetron HCl (Zofran Inj) 4 mg Q4H PRN IV NAUSEA AND/OR VOMITING; Start 10/26 at 14:30 Amlodipine Besylate (Norvasc) 10 mg DAILY PO Last administered on 10/27/16 09: 04; Admin Dose 10 MG; Start 10/26/16 at 14:30 Hydralazine HCl (Apresoline) 10 mg Q6H PRN IV ELEVATED SYSTOLIC BP; Start at 14:30 Acetaminophen (Tylenol Tab) 650 mg Q6H PRN PO PAIN AND OR ELEVATED TEMP Last administered on 10/27/16 17:01; Admin Dose 650 MG; Start 10/26/16 at 14:30 Morphine Sulfate (Ms Contin (Er)) 60 mg BID PO Last administered on 10/27/16 20 :23; Admin Dose 60 MG; Start 10/26/16 at 21:00 Hydromorphone HCl (Dilaudid) 1 mg Q3 PRN IV PAIN Last administered on 10/27/16 11:19; Admin Dose 1 MG; Start 10/26/16 at 17:30 Methylnaltrexone [place] (Relistor) 12 mg Q2D@09 SC Last administered on 21:11; Admin Dose 12 MG; Start 10/26/16 at 20:00 Polyethylene Glycol (Miralax) 17 gm DAILY PRN NGT CONSTIPATION Last administered on 10/27/16 18:50; Admin Dose 17 GM; Start 10/26/16 at 17:30 KYLE MEYERS MD Oct 27, 2016 20:36
[2016-10-28] MEDS: PANTOPRAZOLE 40 MG INJ IV SCH (05:24)
[2016-10-28 07:00] VITALS: BP 118/60; RESP 20
[2016-10-28] MEDS: AMLODIPINE 10 MG TAB PO SCH (09:14)
[2016-10-28] MEDS: morphine (ER) 30 MG TAB PO SCH (09:15)
[2016-10-28] MEDS: METHYLNALTREXONE 12 MG/0.6 ML VIAL SC SCH (09:19)
[2016-10-28] MEDS: HYDROmorphONE 1 MG/ML SYG IV PRN ×2 (09:20→14:58)
--- NOTE | 2016-10-28 14:36 | CONS ---
Date/Time of Note Date/Time of Note DATE: 10/28/16 TIME: 14:34 Assessment/Plan Assessment/Plan Chief Complaint/Hosp Course 61 yo male with 40 pack year smoking history, who is being treated for metastatic adenoca of lung. Patient has progressed through carboplatin and Alimpta and is now receiving opdivo immuno therapy. Patient received his 7th dose 3 weeks ago in our office. He now presents with dizziness x 3 weeks as well as abdominal pain. CT C/A/P was done in house which reveals the known lung mass and retroperitoneal nodes. When compared to the last scan in 06/2016, the lung mass is stable in size but the retroperitoneal lymph nodes have slightly increased in size. He has since been diagnosed with multiple brains mets -stat Decadron mg po BID as an out patient -case management to arrange for out patient radiation -pt will need to start a new chemotherapy regimen as an out patient -appreciate pain management recommendations. Pt is on MS contin and Dilaudid approximately 40 min were spent at patient's bedside and in coordination of his care Problems: Consultation Date/Type/Reason Admit Date/Time Oct 26, 2016 at 12:01 Initial Consult Date 10/26/16 Type of Consultation: Oncology Reason for Consultation adenoca of lung Referring Provider: KARTHIK SANDERS 24 HR Interval Summary Free Text/Dictation pt feels better after fluids. still with abdominal pain. told he had brain mets , wants to go home to his son Exam/Review of Systems Vital Signs Vitals Vital Signs Date Time Temp Pulse Resp B/P Pulse Ox O2 Delivery O2 Flow Rate FiO2 10/28/16 07:00 98.6 84 20 118/60 100 10/26/16 13:30 Room Air Intake and Output 10/27/16 10/27/16 10/28/16 15:00 23:00 07:00 Intake Total 1350 ml 1300 ml Output Total 950 ml 700 ml Balance 400 ml 600 ml Exam Constitutional: alert, oriented Psych: nl mood/affect, no complaints Eyes: nl conjunctiva ENMT: nl external ears & nose Neck: non-tender, supple Respiratory: clear to auscultation Cardiovascular: regular rate and rhythm Gastrointestinal: soft Musculoskeletal: nl extremities to inspection Results Result Diagram: 10/26/16 1000 10/26/16 1000 Medications Medications Current Medications Dextrose/Sodium Chloride (D5-NS) 1,000 ml @ 60 mls/hr [id number] IV Last administered on 10/27/16 23:42; Admin Dose 60 MLS/HR; Start 10/26/16 at 14:30 Ondansetron HCl (Zofran Inj) 4 mg Q4H PRN IV NAUSEA AND/OR VOMITING; Start 10/26 at 14:30 Amlodipine Besylate (Norvasc) 10 mg DAILY PO Last administered on 10/28/16 09: 14; Admin Dose 10 MG; Start 10/26/16 at 14:30 Hydralazine HCl (Apresoline) 10 mg Q6H PRN IV ELEVATED SYSTOLIC BP; Start at 14:30 Acetaminophen (Tylenol Tab) 650 mg Q6H PRN PO PAIN AND OR ELEVATED TEMP Last administered on 10/27/16 17:01; Admin Dose 650 MG; Start 10/26/16 at 14:30 Morphine Sulfate (Ms Contin (Er)) 60 mg BID PO Last administered on 10/28/16 09 :15; Admin Dose 60 MG; Start 10/26/16 at 21:00 Hydromorphone HCl (Dilaudid) 1 mg Q3 PRN IV PAIN Last administered on 10/28/16 09:20; Admin Dose 1 MG; Start 10/26/16 at 17:30 Methylnaltrexone [place] (Relistor) 12 mg Q2D@09 SC Last administered on 09:19; Admin Dose 12 MG; Start 10/26/16 at 20:00 Polyethylene Glycol (Miralax) 17 gm DAILY PRN NGT CONSTIPATION Last administered on 10/27/16 18:50; Admin Dose 17 GM; Start 10/26/16 at 17:30 Pantoprazole (Protonix Tab) 40 mg DAILY@06 PO ; Start 10/29/16 at 06:00 BONI SMALL M.D. Oct 28, 2016 14:36
[2016-10-28] MEDS ORDERED: HEPARIN (100 UNITS/ML) 5 ML SYG CATHETER ONE (16:00)
[2016-10-28] MEDS: DEXTROSE 5%-0.9% NACL 1,000 ML IV SCH (16:30)
[2016-10-29] MEDS ORDERED: PANTOPRAZOLE (EC) 40 MG TAB PO SCH (06:00)
== END 2016-10-28 17:05 | disposition home or self-care (01) | DRG 181 ==
LOC: E/R 08:57 → MS1 12:01 → E/R 12:56 → OBSVTOIN 10-28 13:34
PROVIDERS: ADMIT Internal Medicine Nephrology; ATTEND Internal Medicine Nephrology
DX: C34.92 Malignant neoplasm of unspecified part of left bronchus or lung (principal); C79.31 Secondary malignant neoplasm of brain; E86.0 Dehydration; N28.1 Cyst of kidney, acquired; C34.91 Malignant neoplasm of unspecified part of right bronchus or lung; I10 Essential (primary) hypertension; Z79.899 Other long term (current) drug therapy; F17.210 Nicotine dependence, cigarettes, uncomplicated; R59.0 Localized enlarged lymph nodes; R10.84 Generalized abdominal pain
CPT/HCPCS: 36415; 70200; 70552; 71010; 71260; 74177; 80053; 82378; 84484; 85025; 93005; 96374; C9113; G0378; J1170; J1642; J2270; J7040; J7042; Q9967

== ENCOUNTER 2016-12-04 18:04 | Emergency (ER) | payer OTHER ==
[~2016-12-04] VITALS: Wt 64.0 kg
[~2016-12-04 18:04] MED LIST changes: -CARI350T PO; -HYDR-762 PO; -LEVO750T8 PO
[2016-12-04] MEDS ORDERED: SOD CHLORIDE 0.9% 1,000 ML IV STA (19:30)
[2016-12-04] MEDS ORDERED: FAMOTIDINE 20 MG INJ IV STA (19:30)
[2016-12-04] MEDS ORDERED: morphine 4 MG/ML VIAL IV STA (19:30)
[2016-12-04] MEDS ORDERED: ONDANSETRON 4 MG INJ IV STA (19:30)
[2016-12-04 20:18] LABS: ADD SCAN DIFF NO
[2016-12-04 20:21] LABS: ABNORMAL IP MESSAGE 1; ADD UMIC YES; HEMATOCRIT 41.2 % (42.0-52.0); HEMOGLOBIN 13.9 g/dl (14.0-18.0); MEAN CORPUSCULAR HEMOGLOBIN 30.1 pg (29.0-33.0); MEAN CORPUSCULAR HGB CONC 33.7 g/dl (32.0-37.0); MEAN CORPUSCULAR VOLUME 89.2 fl (82.0-101.0); MEAN PLATELET VOLUME 8.6 fl (7.4-10.4); PLATELET COUNT 99 10^3/UL (140-415); RED BLOOD COUNT 4.62 10^6/ul (4.70-6.10); RED CELL DISTRIBUTION WIDTH 16.7 % (11.5-14.5); URINE BILIRUBIN (Dip) NEGATIVE (NEGATIVE); URINE BLOOD (Dip) 1+ (NEGATIVE); URINE COLOR LT. YELLOW (YELLOW); URINE GLUCOSE (Dip) NEGATIVE (NEGATIVE); URINE KETONES (Dip) NEGATIVE (NEGATIVE); URINE LEUKOCYTE ESTERASE (Dip) NEGATIVE (NEGATIVE); URINE NITRITE (Dip) NEGATIVE (NEGATIVE); URINE TOTAL PROTEIN (Dip) NEGATIVE (NEGATIVE); URINE UROBILINOGEN (Dip) 1.0 E.U./dL (0.1-1.0); WHITE BLOOD COUNT 7.7 10^3/ul (4.8-10.8)
[2016-12-04 20:33] LABS: URINE RBCS 0-2 /HPF (0)
[2016-12-04] MEDS ORDERED: GABA300C16 PO (20:33)
[2016-12-04] MEDS ORDERED: MORP15TA92 PO ×2 (20:33)
[2016-12-04 20:34] LABS: BACTERIA,URINE RARE
[2016-12-04] MEDS ORDERED: DEXA4TAB PO (20:34)
[2016-12-04] MEDS ORDERED: OMEP20CA16 PO (20:34)
[2016-12-04] MEDS ORDERED: HYDR4TAB18 PO (20:35)
[2016-12-04] MEDS ORDERED: HYDR-902 PO (20:35)
[2016-12-04 20:42] LABS: ALBUMIN 3.5 g/dl (3.3-4.9)
[2016-12-04 20:43] LABS: POTASSIUM 3.8 mmol/L (3.5-5.1)
[2016-12-04 20:45] LABS: BILIRUBIN,INDIRECT 0.5 mg/dl (0-1.1); BILIRUBIN,TOTAL 0.5 mg/dl (0.2-1.3); CREATININE 0.83 mg/dl (0.61-1.24)
[2016-12-04 20:46] LABS: ALBUMIN/GLOBULIN RATIO 1.16; CALCIUM 9.2 mg/dl (8.4-10.2); LYMPHOCYTES # 0.2 10^3/ul (0.8-2.9); MONOCYTE # 0.2 10^3/ul (0.3-0.9); NEUTROPHIL # 7.3 10^3/ul (1.6-7.5); TOTAL PROTEIN 6.5 g/dl (6.1-8.1)
[2016-12-04 20:47] LABS: ANISOCYTOSIS 1+; PLATELET ESTIMATE PLT APPEAR DECREASED
--- NOTE | 2016-12-04 21:04 | ERD ---
ER Documentation Chief Complaint Date/Time DATE: 12/04/16 TIME: 21:03 Chief Complaint LOW ABD PAIN AND LOW BACK PAIN FOR 1 WK AFTER RADIATION THERAPY, N/V HPI This 61-year-old male presents to the emergency room for evaluation of body pain , and generalized weakness. The patient does state that he also feels nauseous and has had one episode of vomiting. This patient does state he has a stage IV lung cancer with metastases to the brain, and states that he is oncologist is Dr. Alvarez. He denies any aggravating factors for his pain and came to the emergency room for evaluation. ROS All systems reviewed and are negative except as per history of present illness. Medications Home Meds Reported Medications Hydromorphone Hcl* (Dilaudid*) 4 Mg Tablet, 4 MG PO BID Y for PAIN, TAB 12/04/16 Hydrocodone/Acetaminophen ([place] 10-325 Tablet) 1 Each Tablet, 1 EACH PO Q4-6 Y for PAIN, TAB 12/04/16 Omeprazole* (Omeprazole*) 20 Mg Capsule.dr, 20 MG PO DAILY, #30 CAP 12/04/16 Dexamethasone* (Dexamethasone*) 4 Mg Tablet, 4 MG PO TID, TAB 12/04/16 Gabapentin* (Gabapentin*) 300 Mg Capsule, 300 MG PO QHS, #60 CAP 12/04/16 Morphine Sulfate* (Ms Contin*) 15 Mg Tablet.sa, 30 MG PO BID Y for SEVERE PAIN LEVEL 7-10, TAB.SA 12/04/16 Morphine Sulfate* (Ms Contin*) 15 Mg Tablet.sa, 15 MG PO Q12 Y for PAIN, TAB 12/04/16 Esomeprazole Mag Trihydrate (Nexium) 20 Mg Capsule.dr, 20 MG PO DAILY, #30 CAP 10/29/15 Amlodipine Besylate* (Norvasc*) 10 Mg Tablet, 10 MG PO DAILY, TAB 10/29/15 Allergies Allergies: Coded Allergies: aspirin (Verified Allergy, Unknown, 12/04/16) penicillin (Verified Allergy, Unknown, 12/04/16) PMhx/Soc History of Surgery: Yes (LT.HAND SURGERY,HERNIA REPAIR) Anesthesia Reaction: No Hx Neurological Disorder: No Hx Respiratory Disorders: Yes (SOB) Hx Cardiac Disorders: Yes (HTN) Hx Psychiatric Problems: No Hx Miscellaneous Medical Probl: No Hx Alcohol Use: No Hx Substance Use: No Hx Tobacco Use: Yes Physical Exam Vitals Vital Signs Date Time Temp Pulse Resp B/P Pulse Ox O2 Delivery O2 Flow Rate FiO2 12/04/16 21:15 98.0 86 18 118/79 98 Room Air 12/04/16 18:05 97.5 113 20 129/87 98 Physical Exam INITIAL VITAL SIGNS: Reviewed by me GENERAL: The patient is well frail-appearing elderly gentleman, no acute distress HEENT: Dry mucous membranes, pupils equal, round, and reactive to light. EOMI. There is no scleral icterus. NECK: C-spine is soft and supple, there is no meningismus. There is no cervical lymphadenopathy. LUNGS: Clear to auscultation bilaterally. There are no rales, wheezes or rhonchi. HEART: Regular rate and rhythm, no murmurs, clicks, rubs or gallops. ABDOMEN: Soft, non-tender, non-distended. There are bowel sounds in all four quadrants. No rebound or guarding. EXTREMITIES: There is no peripheral cyanosis or edema. No focal swelling or erythema. NEUROLOGICAL: The patient moves all four extremities with 5/5 strength. Cranial nerves II - XII are intact. Normal gait. Alert and oriented SKIN: There is no apparent rash or petechiae. HEME/LYMPHATIC: There is no evidence of excessive bruising or lymphedema. PSYCHIATRIC: The patient does not appear anxious or depressed. Result Diagram: 12/04/16200912/04/162009 Results 24 hrs Laboratory Tests Test 12/04/16 20:10 White Blood Count 7.710^3/ul Red Blood Count 4.6210^6/ul Hemoglobin 13.9g/dl Hematocrit 41.2% Mean Corpuscular Volume 89.2fl Mean Corpuscular Hemoglobin 30.1pg Mean Corpuscular Hemoglobin Concent 33.7g/dl Red Cell Distribution Width 16.7% Platelet Count 9910^3/UL Mean Platelet Volume 8.6fl Neutrophils % 95.0% Lymphocytes % 2.0% Monocytes % 3.0% Neutrophils # 7.310^3/ul Lymphocytes # 0.210^3/ul Monocytes # 0.210^3/ul Platelet Estimate PLT APPEAR DECREASED Anisocytosis 1+ Urine Color LT. YELLOW Urine Clarity CLEAR Urine pH 6.0 Urine Specific [place] 1.020 Urine Ketones NEGATIVE Urine Nitrite NEGATIVE Urine Bilirubin NEGATIVE Urine Urobilinogen 1.0 E.U./dL Urine Leukocyte Esterase NEGATIVE Urine Microscopic RBC 0-2/HPF Urine Microscopic WBC NONE SEEN/HPF Urine Epithelial Cells OCCASIONAL Urine Bacteria RARE Urine Hemoglobin 1+ Urine Glucose NEGATIVE% Urine Total Protein NEGATIVE Sodium Level 134mmol/L Potassium Level 3.8mmol/L Chloride Level 97mmol/L Carbon Dioxide Level 28mmol/L Anion Gap 13 Blood Urea Nitrogen 26mg/dl Creatinine 0.83mg/dl Glucose Level 113mg/dl Calcium Level 9.2mg/dl Total Bilirubin 0.5mg/dl Direct Bilirubin 0.00mg/dl Indirect Bilirubin 0.5mg/dl Aspartate Amino Transf (AST/SGOT) 36IU/L Alanine Aminotransferase (ALT/SGPT) 34IU/L Alkaline Phosphatase 62IU/L Total Protein 6.5g/dl Albumin 3.5g/dl Globulin 3.00g/dl Albumin/Globulin Ratio 1.16 Lipase 86U/L Current Medications Medications (Trade) Dose Ordered Sig/Alan Route PRN Reason Start Time Stop Time Status Last Admin Dose Admin Sodium Chloride (NS) 1,000 ml @ 1,000 mls/hr Q1H STAT IV 12/04/16 19:30 12/04/16 20:29 DC 12/04/16 20:05 Morphine Sulfate (morphine) 4 mg ONCE STAT IV 12/04/16 19:30 12/04/16 19:31 DC 12/04/16 20:05 Ondansetron HCl (Zofran Inj) 4 mg ONCE STAT IV 12/04/16 19:30 12/04/16 19:31 DC 12/04/16 20:05 Famotidine (Pepcid Iv) 20 mg ONCE STAT IV 12/04/16 19:30 12/04/16 19:31 DC 12/04/16 20:05 Procedures/MDM EKG: Rate/Rhythm: [Normal Sinus Rhythm] QRS, ST, T-waves: [No changes consistent w/ acute ischemia] Impression: [No evidence of ischemia or arrhythmia] This 61-year-old male presents to the ER for evaluation of body pain. This patient does have history of stage IV lung carcinoma with metastasis to the brain. This patient has been followed by his oncologist, Dr. Marsh. When I evaluated him he appeared to be in no acute distress, however he was complaining of body pain. I did obtain lab work on this patient and the patient was given 1 L of fluids and was given morphine and Zofran. Pulmonary evaluation the patient states is feeling much better at this time. The patient does have thrombocytopenia, no signs of infection. The patient states is feeling much better at this time. I reviewed the case with the on-call physician for Dr. Marsh and he agrees the patient can be discharged home at this time. Departure Diagnosis: Primary Impression: Whole body pain Additional Impressions: Lung cancer Normocytic anemia Thrombocytopenia Condition: Stable DANIELLE BONILLA DO Dec 04, 2016 21:04
[2016-12-04 21:15] VITALS: TEMP 98
[2016-12-04 22:35] VITALS: BP 128/79; PULSE 83; RESP 18
== END 2016-12-04 22:50 | disposition home or self-care (01) ==
LOC: E/R 18:04
DX: R52 Pain, unspecified (principal); C34.90 Malignant neoplasm of unspecified part of unspecified bronchus or lung; D64.9 Anemia, unspecified; D69.6 Thrombocytopenia, unspecified; I10 Essential (primary) hypertension; R11.2 Nausea with vomiting, unspecified; Z87.891 Personal history of nicotine dependence
CPT/HCPCS: 36415; 80053; 81001; 83690; 84484; 85025; 93005; 96374; 96375; J2270; J2405; J7030; Z7502; Z7610; 81003

== ENCOUNTER 2016-12-15 19:41 | Inpatient (IN) | payer OTHER ==
[~2016-12-15] VITALS: Ht 177.8 cm; Wt 75.0 kg
[~2016-12-15 19:41] MED LIST changes: +DEXA4TAB PO; +GABA300C16 PO; +HYDR-902 PO; +HYDR4TAB18 PO; +MORP15TA92 PO; +OMEP20CA16 PO
[2016-12-15 20:02] VITALS: Ht 177.8 cm; Wt 75.0 kg
[2016-12-15] MEDS ORDERED: morphine 4 MG/ML VIAL IV STA (21:58)
[2016-12-15] MEDS ORDERED: ONDANSETRON 4 MG INJ IV STA (21:58)
[2016-12-15] MEDS ORDERED: DEXTROSE 5%-0.45% NACL 1,000 ML IV SCH (23:15)
[2016-12-15 23:23] VITALS: PULSE 87; TEMP 99.4
[2016-12-15] MEDS ORDERED: HYDROmorphONE 2 MG/ML SYG IV STA (23:24)
--- NOTE | 2016-12-15 23:26 | ERA ---
ER Documentation Chief Complaint Date/Time DATE: 12/15/16 TIME: 23:25 Chief Complaint weakness, body pain hx stage 4 lunf=g ca w/ mets taking radattion HPI This is a 61-year-old male with stage IV lung cancer with metastasis. Patient complaining of total body pain and weakness. No nausea no vomiting no fevers no chills. No other current complaints. ROS All systems reviewed and are negative except as per history of present illness. Medications Home Meds Reported Medications Hydromorphone Hcl* (Dilaudid*) 4 Mg Tablet, 4 MG PO BID Y for PAIN, TAB 12/04/16 Hydrocodone/Acetaminophen ([place] 10-325 Tablet) 1 Each Tablet, 1 EACH PO Q4-6 Y for PAIN, TAB 12/04/16 Dexamethasone* (Dexamethasone*) 4 Mg Tablet, 4 MG PO TID, TAB 12/04/16 Gabapentin* (Gabapentin*) 300 Mg Capsule, 300 MG PO QHS, #60 CAP 12/04/16 Morphine Sulfate* (Ms Contin*) 15 Mg Tablet.sa, 15 MG PO Q12 Y for PAIN, TAB 12/04/16 Esomeprazole Mag Trihydrate (Nexium) 20 Mg Capsule.dr, 20 MG PO DAILY, #30 CAP 10/29/15 Amlodipine Besylate* (Norvasc*) 10 Mg Tablet, 10 MG PO DAILY, TAB 10/29/15 Discontinued Reported Medications Omeprazole* (Omeprazole*) 20 Mg Capsule.dr, 20 MG PO DAILY, #30 CAP 12/04/16 Morphine Sulfate* (Ms Contin*) 15 Mg Tablet.sa, 30 MG PO BID Y for SEVERE PAIN LEVEL 7-10, TAB.SA 12/04/16 Allergies Allergies: Coded Allergies: aspirin (Verified Allergy, Unknown, 12/15/16) penicillin (Verified Allergy, Unknown, 12/15/16) PMhx/Soc History of Surgery: Yes (LT.HAND SURGERY,HERNIA REPAIR) Anesthesia Reaction: No Hx Neurological Disorder: No Hx Respiratory Disorders: Yes (SOB; LUNG CA 2013) Hx Cardiac Disorders: Yes (HTN) Hx Psychiatric Problems: No Hx Miscellaneous Medical Probl: No Hx Alcohol Use: No Hx Substance Use: No Hx Tobacco Use: Yes Smoking Status: Former smoker Physical Exam Vitals Vital Signs Date Time Temp Pulse Resp B/P Pulse Ox O2 Delivery O2 Flow Rate FiO2 12/15/16 20:02 98.5 124 20 99/72 98 Physical Exam Const: [] Head: Atraumatic Eyes: Normal Conjunctiva ENT: Normal External Ears, Nose and Mouth. Neck: Full range of motion..~ No meningismus. Resp: Clear to auscultation bilaterally Cardio: Regular rate and rhythm, no murmurs Abd: Soft, non tender, non distended. Normal bowel sounds Skin: No petechiae or rashes Back: No midline or flank tenderness Ext: No cyanosis, or edema Neur: Awake and alert Psych: Normal Mood and Affect Results 24 hrs Current Medications Medications (Trade) Dose Ordered Sig/Alan Route PRN Reason Start Time Stop Time Status Last Admin Dose Admin Morphine Sulfate (morphine) 4 mg ONCE STAT IV 12/15/16 21:58 12/15/16 22:01 DC 12/15/16 22:11 Ondansetron HCl (Zofran Inj) 4 mg ONCE STAT IV 12/15/16 21:58 12/15/16 22:01 DC 12/15/16 22:11 Amlodipine Besylate (Norvasc) 10 mg DAILY PO 12/16/16 09:00 UNV Dexamethasone (Decadron) 4 mg TID PO 12/16/16 09:00 UNV Gabapentin (Neurontin) 300 mg QHS PO 12/16/16 21:00 UNV Acetaminophen/ Hydrocodone Bitart ([place] (10/325)) 1 tab Q6 PRN PO PAIN 12/15/16 23:30 UNV Morphine Sulfate 15 mg 15 mg Q12 PRN PO PAIN 12/15/16 23:30 UNV Dextrose/Sodium Chloride (D5-1/2ns) 1,000 ml @ 40 mls/hr Q24H IV 12/15/16 23:15 UNV IV Flush (NS 3 ml) 3 ml PER PROTOCOL IV 12/15/16 23:30 UNV Ondansetron HCl (Zofran Inj) 4 mg Q6H PRN IV NAUSEA AND/OR VOMITING 12/15/16 23:30 UNV Acetaminophen (Tylenol Tab) 650 mg Q6H PRN PO PAIN LEVEL 1-3 OR FEVER 12/15/16 23:30 UNV Acetaminophen (Tylenol Supp) 650 mg Q6H PRN AR PAIN LEVEL 1-3 OR FEVER 12/15/16 23:30 UNV Morphine Sulfate (morphine) 2 mg Q4H PRN IV SEVERE PAIN LEVEL 7-10 12/15/16 23:30 UNV Docusate Sodium (Colace) 100 mg Q12H PRN PO CONSTIPATION 12/15/16 23:30 UNV Magnesium Hydroxide (Milk Of Mag) 30 ml DAILY PRN PO CONSTIPATION 12/15/16 23:30 UNV Bisacodyl (Dulcolax) 5 mg DAILY PRN PO CONSTIPATION 12/15/16 23:30 UNV Zolpidem Tartrate (Ambien) 5 mg QHS PRN PO SLEEP 12/15/16 23:30 UNV Procedures/MDM Medical decision-making: Patient comes in for essentially intractable pain secondary to metastatic cancer. Patient will be admitted. Oncologist has been notified. Hospice arrangements to be made while in hospital. Departure Diagnosis: Primary Impression: Metastatic cancer Additional Impression: Intractable pain Condition: Serious CONNOR HARMAN Dec 15, 2016 23:26
[2016-12-15 23:30] LABS: ALBUMIN 3.4 g/dl (3.3-4.9); ALBUMIN/GLOBULIN RATIO 1.03; BILIRUBIN,INDIRECT 0.4 mg/dl (0-1.1); BILIRUBIN,TOTAL 0.4 mg/dl (0.2-1.3); CALCIUM 9.4 mg/dl (8.4-10.2); CREATININE 0.96 mg/dl (0.61-1.24); POTASSIUM 4.2 mmol/L (3.5-5.1); TOTAL PROTEIN 6.7 g/dl (6.1-8.1)
[2016-12-15] MEDS ORDERED: ACETAMINOPHEN 325 MG TAB PO PRN (23:30)
[2016-12-15] MEDS ORDERED: BISACODYL (EC) 5 MG TAB PO PRN (23:30)
[2016-12-15] MEDS ORDERED: DOCUSATE SODIUM 100 MG CAP PO PRN (23:30)
[2016-12-15] MEDS ORDERED: morphine (ER) 15 MG TAB PO PRN (23:30)
[2016-12-15] MEDS ORDERED: HYDROCODONE/APAP (10/325) TAB PO PRN (23:30)
[2016-12-15] MEDS ORDERED: MAGNESIUM HYDROXIDE 30ML CUP PO PRN (23:30)
[2016-12-15] MEDS ORDERED: ACETAMINOPHEN 650 MG SUPP PR PRN (23:30)
[2016-12-15] MEDS ORDERED: ZOLPIDEM 5 MG TAB PO PRN (23:30)
[2016-12-15] MEDS ORDERED: ONDANSETRON 4 MG INJ IV PRN (23:30)
[2016-12-15] MEDS ORDERED: NACL 0.9% 3 ML SYG IV SCH (23:30)
[2016-12-15 23:39] LABS: ABNORMAL IP MESSAGE 1; HEMATOCRIT 41.7 % (42.0-52.0); HEMOGLOBIN 13.7 g/dl (14.0-18.0); MEAN CORPUSCULAR HGB CONC 32.9 g/dl (32.0-37.0); MEAN CORPUSCULAR VOLUME 91.4 fl (82.0-101.0); MEAN PLATELET VOLUME 9.3 fl (7.4-10.4); PLATELET COUNT 119 10^3/UL (140-415); RED BLOOD COUNT 4.56 10^6/ul (4.70-6.10); RED CELL DISTRIBUTION WIDTH 17.2 % (11.5-14.5)
[2016-12-15 23:48] LABS: ADD SCAN DIFF YES
[2016-12-16] MEDS ORDERED: SOD CHLORIDE 0.9% 500 ML IV ONE
[2016-12-16 00:13] VITALS: BP 112/72; RESP 18
[2016-12-16 02:09] LABS: LYMPHOCYTES # 0.5 10^3/ul (0.8-2.9); MONOCYTE # 0.2 10^3/ul (0.3-0.9); NEUTROPHIL # 7.3 10^3/ul (1.6-7.5); PLATELET ESTIMATE PLT APPEAR DECREASED
[2016-12-16] MEDS: morphine 2 MG INJ IV PRN ×2 (05:37→11:26)
[2016-12-16 07:35] VITALS: BP_SYST 110; BP_SYST 128; BP_DIAS 70; BP_DIAS 79; RESP 18; RESP 20
[2016-12-16] MEDS ORDERED: [UNRECOGNIZED DRUG - REMARK] XX SCH (08:00)
[2016-12-16] MEDS ORDERED: AMLODIPINE 10 MG TAB PO SCH (09:00)
[2016-12-16] MEDS: DEXAMETHASONE 4 MG TAB PO SCH ×2 (11:25→12:39)
[2016-12-16] MEDS ORDERED: morphine (ER) 15 MG TAB PO SCH (12:00)
--- NOTE | 2016-12-16 12:48 | CONS ---
Date/Time of Note Date/Time of Note DATE: 12/16/16 TIME: 12:35 Assessment/Plan Assessment/Plan Chief Complaint/Hosp Course 61 yo male with end stage metastatic lung cancer with brain mets that has progressed through multiple lines of chemotherapy and immunotherapy. Pt is no longer a candidate for therapy given his poor performance status. He is s/p palliative brain radiation. -continue IV hydration -will continue home dose of MS Contin 30mg TID with [place] for breakthrough pain. Palliative care has been consulted to assist with pain management -pt will need hospice referral -extensive discussion was had with patient and patient's girlfriend Margi who is aware patient is terminally ill Problems: Consultation Date/Type/Reason Admit Date/Time Dec 15, 2016 at 23:13 Date of Consultation: Dec 16, 2016 Type of Consultation: oncology Reason for Consultation metastatic lung cancer Referring Provider: KYLE MEYERS MD Hx of Present Illness 61 yo male with 40 pack year smoking history, who is being treated for metastatic adenoca of lung. Patient has progressed through carboplatin and Alimpta as well as opdivo. Pt recently was admitted in 10/2016 for extreme abdominal pain and weakness. At that time he was diagnosed with diffuse brain metastasis. HE has since completed radiation and was maintained on Decadron and Keppra. Over the past several weeks, patient's clinical and emotional status have quickly declined. Pt was recently hospitalized in a psychiatric facility after he was found supposedly trying to commit suicide. Pt was discharged from the facility with his girlfriend after the facility was notified about is terminal illness. Pt is now being admitted for severe weakness, dehydration and pain management. Subjective hx not possible: other (total body pain) Eyes: no complaints ENT: no complaints Respiratory: cough, pain Cardiovascular: chest pain Gastrointestinal: decreased appetite, nausea, pain Genitourinary: no complaints Musculoskeletal: back pain, bone/joint pain Skin: no complaints Neurologic: dizziness, headache, other (barin mets) Past Medical History COPD Past Surgical History Past Surgical Hx: no surgical history Social History Smoking Status: Former smoker (40 pk year smoking history. past history of drug use) Exam/Review of Systems Vital Signs Vitals Vital Signs Date Time Temp Pulse Resp B/P Pulse Ox O2 Delivery O2 Flow Rate FiO2 12/16/16 07:35 98.6 62 18 110/70 98 12/15/16 23:23 Room Air Intake and Output 12/15/16 12/15/16 12/16/16 15:00 23:00 07:00 Intake Total 460 ml Output Total 550 ml Balance -90 ml Exam Constitutional: alert, distress, frail, oriented Psych: anxiety, confusion, depression Head: normocephalic Eyes: nl conjunctiva ENMT: nl external ears & nose Neck: non-tender, supple Respiratory: diminished breath sounds Cardiovascular: nl pulses, regular rate and rhythm Gastrointestinal: non-tender, soft Musculoskeletal: nl extremities to inspection, nl gait and stance Extremities: normal pulses Results Result Diagram: 12/15/16 2300 12/15/16 2300 Results 24 hrs Laboratory Tests Test 12/15/16 23:00 White Blood Count 8.0 Red Blood Count 4.56 L Hemoglobin 13.7 L Hematocrit 41.7 L Mean Corpuscular Volume 91.4 Mean Corpuscular Hemoglobin 30.0 Mean Corpuscular Hemoglobin Concent 32.9 Red Cell Distribution Width 17.2 H Platelet Count 119 #L Mean Platelet Volume 9.3 Neutrophils % 91.0 H Lymphocytes % 6.0 L Monocytes % 3.0 Neutrophils # 7.3 Lymphocytes # 0.5 L Monocytes # 0.2 L Platelet Estimate PLT APPEAR DECREASED Sodium Level 137 Potassium Level 4.2 Chloride Level 102 Carbon Dioxide Level 25 Anion Gap 14 Blood Urea Nitrogen 29 H Creatinine 0.96 Glucose Level 124 Calcium Level 9.4 Total Bilirubin 0.4 Direct Bilirubin 0.00 Indirect Bilirubin 0.4 Aspartate Amino Transf (AST/SGOT) 45 Alanine Aminotransferase (ALT/SGPT) 38 Alkaline Phosphatase 84 Total Protein 6.7 Albumin 3.4 Globulin 3.30 H Albumin/Globulin Ratio 1.03 Lipase 58 Medications Medications Current Medications Amlodipine Besylate (Norvasc) 10 mg DAILY PO Last administered on 12/16/16 11: 25; Admin Dose 10 MG; Start 12/16/16 at 09:00 Dexamethasone (Decadron) 4 mg TID PO Last administered on 12/16/16 11:25; Admin Dose 4 MG; Start 12/16/16 at 09:00 Gabapentin (Neurontin) 300 mg QHS PO ; Start 12/16/16 at 21:00 Acetaminophen/ Hydrocodone Bitart 1 tab 1 tab Q6H PRN PO PAIN; Start 12/15/16 at 23:30 Dextrose/Sodium Chloride (D5-1/2ns) 1,000 ml @ 40 mls/hr Q24H IV Last administered on 12/16/16 00:29; Admin Dose 40 MLS/HR; Start 12/15/16 at 23:15 Ondansetron HCl (Zofran Inj) 4 mg Q6H PRN IV NAUSEA AND/OR VOMITING Last administered on 12/16/16 05:37; Admin Dose 4 MG; Start 12/15/16 at 23:30 Acetaminophen (Tylenol Tab) 650 mg Q6H PRN PO PAIN LEVEL 1-3 OR FEVER; Start at 23:30 Acetaminophen (Tylenol Supp) 650 mg Q6H PRN [place] PAIN LEVEL 1-3 OR FEVER; Start 12/15/16 at 23:30 Morphine Sulfate (morphine) 2 mg Q4H PRN IV SEVERE PAIN LEVEL 7-10 Last administered on 12/16/16 11:26; Admin Dose 2 MG; Start 12/15/16 at 23:30 Docusate Sodium (Colace) 100 mg Q12H PRN PO CONSTIPATION; Start 12/15/16 at 23: 30 Magnesium Hydroxide (Milk Of Mag) 30 ml DAILY PRN PO CONSTIPATION; Start at 23:30 Bisacodyl (Dulcolax) 5 mg DAILY PRN PO CONSTIPATION; Start 12/15/16 at 23:30 Zolpidem Tartrate (Ambien) 5 mg QHS PRN PO SLEEP; Start 12/15/16 at 23:30 Morphine Sulfate (Ms Contin (Er)) 15 mg DAILY PO ; Start 12/16/16 at 12:00 BONI SMALL M.D. Dec 16, 2016 12:48
[2016-12-16] MEDS ORDERED: HYDROmorphONE 1 MG/ML SYG IV PRN (13:30)
--- NOTE | 2016-12-16 18:37 | QN ---
Documentation Comment [id number] KYLE MEYERS MD Dec 16, 2016 18:37
--- NOTE | 2016-12-16 18:55 | HP ---
DATE OF ADMISSION: 12/15/2016 HISTORY OF PRESENT ILLNESS: Abran Schwarz is a 61-year-old male with metastatic lung cancer with brain mets. It has progressed through multiple lines of chemotherapy. He is no longer a candidate for therapy given his poor performance. He is status post palliative brain radiation complaining of pain and was admitted by Dr. Tejeda for further management. The patient sincerely hopes he can get some treatment. PAST MEDICAL HISTORY: Positive for metastatic lung carcinoma, clinical dehydration, hypertension an d anemia. ALLERGY HISTORY: 1. ASPIRIN. 2. PENICILLIN. SOCIAL HISTORY: Smoking positive. MEDICATION HISTORY: The patient's current home medications: 1. Amlodipine. 2. Dexamethasone. 3. Omeprazole. 4. Gabapentin. 5. Hydromorphone. 6. Morphine. REVIEW OF HEENT: Unremarkable. RESPIRATORY: Unremarkable. CARDIOVASCULAR: Unremarkable. ABDOMEN: Unremarkable. EXTREMITIES: Unremarkable. CENTRAL NERVOUS SYSTEM: Denies weakness, no numbness or tingling. PHYSICAL EXAMINATION: GENERAL: The patient is awake, alert and mildly anxious. VITAL SIGNS: Stable. HEAD: Atraumatic, normocephalic. Pupils equal, reactive to light. NECK: Supple. No JVD. LUNGS: Clear. CARDIOVASCULAR: S1, S2 are normal. ABDOMEN: Soft, nontender. Bowel sounds present. No palpable mass. EXTREMITIES: No cyanosis, clubbing, or edema. CENTRAL NERVOUS SYSTEM: The patient is awake, alert, no focal deficit. LABORATORY DATA: Hematocrit 41.7. Sodium 139, potassium 4.2. IMPRESSION: Metastatic brain carcinoma. PLAN: To follow recommendations from Dr. Tejeda, possible hospice care. Pain medication orders were done. Dictated By: KYLE MEYERS MD BS/NTS Conf#: [id number] DID#: [id number]
[2016-12-16] MEDS ORDERED: GABAPENTIN 300 MG CAP PO SCH (21:00)
[2016-12-16] MEDS ORDERED: morphine (ER) 30 MG TAB PO SCH (21:00)
== END 2016-12-16 17:08 | disposition left against medical advice (07) | DRG 948 ==
LOC: E/R 19:41 → PP2 23:13
PROVIDERS: ADMIT Internal Medicine Nephrology; ATTEND Internal Medicine Nephrology
DX: G89.3 Neoplasm related pain (acute) (chronic) (principal); C79.31 Secondary malignant neoplasm of brain; C34.90 Malignant neoplasm of unspecified part of unspecified bronchus or lung; Z87.891 Personal history of nicotine dependence
CPT/HCPCS: 80053; 83690; 85025; 96374; 96375; J1170; J2270; J2405; J7040; J7042